=== PATIENT | male | born 1970 | race African-American/Black ===

== ENCOUNTER 2016-11-07 18:00 | Emergency (ER) | payer SELFPAY ==
[~2016-11-07] VITALS: Ht 170.2 cm; Wt 100.6 kg
[~2016-11-07 18:00] MED LIST: BENAZEPRIL HCL10 MG PO; BENZONATATE200 MG PO; CLARINEX5 MG PO; MEN'S MULTI-VI1 EACH PO
[2016-11-07] MEDS ORDERED: AUGMENTIN875 MG PO (19:16)
[2016-11-07] MEDS ORDERED: FLONASE16 G1 BOTH NARES (19:16)
[2016-11-07] MEDS ORDERED: ALLEGRA-D 121 TABLET PO (19:16)
[2016-11-07 19:23] VITALS: BP 138/90
== END 2016-11-07 19:26 | disposition home or self-care (01) ==
LOC: EME 18:00
DX: J01.90 Acute sinusitis, unspecified (principal); Z87.891 Personal history of nicotine dependence
CPT/HCPCS: 99281; 99284

== ENCOUNTER 2017-07-13 21:00 | Emergency (ER) | payer OTHER ==
[~2017-07-13] VITALS: Ht 170.2 cm; Wt 99.0 kg
[~2017-07-13 21:00] MED LIST changes: +ALLEGRA-D 121 TABLET PO; +AUGMENTIN875 MG PO; +FLONASE16 G1 BOTH NARES
[2017-07-13] MEDS ORDERED: ULTRACET1 TABLET PO (23:20)
[2017-07-13 23:28] VITALS: BP 130/78
== END 2017-07-13 23:28 | disposition home or self-care (01) ==
LOC: EME 21:00
DX: S01.01XA Laceration without foreign body of scalp, initial encounter (principal); W18.30XA Fall on same level, unspecified, initial encounter; M50.321 Other cervical disc degeneration at C4-C5 level; F10.99 Alcohol use, unspecified with unspecified alcohol-induced disorder; Z23 Encounter for immunization; I10 Essential (primary) hypertension; Z87.891 Personal history of nicotine dependence
CPT/HCPCS: 70450; 72125; 99281; 99284